=== PATIENT | female | born 1960 | race Native Hawaiian/Other Pacific Islander ===

== ENCOUNTER 2017-08-03 11:37 | Emergency (ER) | payer OTHER ==
[2017-08-03 11:37] VITALS: PULSE 71; BMI 18.6
[2017-08-03 11:40] VITALS: BP 155/86; PULSE 80; TEMP 98
[2017-08-03 11:42] VITALS: RESP 16; O2SAT 98
--- NOTE | 2017-08-03 12:12 | ED PDOC ---
HPI: General Adult Time Seen by Provider: 08/03/17 11:43 Chief Complaint (Nursing): Lower Extremity Problem/Injury History Per: Patient Additional Complaint(s): Pt. states earlier today at work she slipped and fell twisting her R foot and ankle on a "slippery floor." Reports pain is localized to the bottom of the R foot but she does notice some swelling to the R ankle. Denies previous injury to foot/ankle, numbness, tingling, head injury, other injury. Past Medical History Reviewed: Historical Data, Nursing Documentation, Vital Signs Vital Signs: Last Vital Signs Temp 98 F 08/03/17 11:39 Pulse 80 08/03/17 11:39 Resp 16 08/03/17 11:39 BP 155/86 H 08/03/17 11:39 Pulse Ox 98 08/03/17 12:14 - Medical History PMH: Atrial Fibrillation (6 yrs ago), Diverticulitis, Gastritis, Migraine Denies: HIV, Chronic Kidney Disease - Surgical History Surgical History: Appendectomy - Family History Family History: States: No Known Family Hx - Home Medications Home Medications: Ambulatory Orders Medication Instructions Recorded Aspirin/Butalbital/Caffeine 1 tab PO PRN PRN 11/11/16 [Fiorinal] Dexlansoprazole [Dexilant] 60 mg PO DAILY 12/10/16 - Allergies Allergies/Adverse Reactions: Allergies Allergy/AdvReac Type Severity Reaction Status Date / Time fluticasone [From Flonase] AdvReac ANAPHYLAXIS Verified 08/03/17 11:45 acta tabs AdvReac ANAPHYLAXIS Uncoded 08/03/17 11:46 Review of Systems ROS Statement: Except As Marked, All Systems Reviewed And Found Negative Musculoskeletal: Positive for: Foot Pain Physical Exam - Physical Exam Appears: Positive for: Well, Non-toxic, No Acute Distress Skin: Positive for: Normal Color, Warm. Negative for: Rash Eye Exam: Positive for: Normal appearance Pulses-Dorsalis Pedis (L): 2+ Pulses-Dorsalis Pedis (R): 2+ Extremity: Positive for: Other (RIGHT LOWER EXTREMITY: minimal tenderness on lateral plantar surface of foot; minimal lateral malleolus swelling without tenderness; no tenderness to ankle). Negative for: Calf Tenderness (b/l) - ECG O2 Sat by Pulse Oximetry: 98 - Radiology X-Ray: Interpreted by Me (R foot/ankle x-ray) X-Ray Interpretation: No Acute Disease - Progress ED Course And Treament: Tylenol 650mg PO, foot/ankle x-ray ordered. Foot/ankle opal wrapped and post-op shoe provided. Crutches and crutch walking instructions provided. Disposition - Clinical Impression Clinical Impression: Foot sprain - Patient ED Disposition Is Patient to be Admitted: No - Disposition Disposition: Routine/Home Disposition Time: 12:19 Condition: STABLE Additional Instructions: Take Tylenol or Motrin at home for pain. Follow up with [facility] on Monday WITHOUT FAIL. Instructions: Foot Sprain (ED), Crutch Instructions (ED), RICE Therapy (ED) Forms: [employer] (Guyanese), [facility] ED School/Work Excuse Print Language: [place] ISLANDER
--- NOTE | 2017-08-03 13:57 | RAD ---
PROCEDURE: Right Ankle Radiographs. HISTORY: trauma COMPARISON: None FINDINGS: BONES: Normal. No fracture. JOINTS: Normal. No osteoarthritis. Ankle mortise maintained. Talar dome intact SOFT TISSUES: A moderate plantar calcaneal spurs identified and there is mild ossification insertion of Achilles tendon on the posterior calcaneus. OTHER FINDINGS: None. IMPRESSION: No acute fracture or dislocation right ankle.
--- NOTE | 2017-08-03 13:59 | RAD ---
PROCEDURE: Right Foot Radiographs. HISTORY: trauma COMPARISON: None. FINDINGS: BONES: No acute fracture dislocation is appreciated. No suspicious lytic or blastic change. JOINTS: Moderate hallux valgus deformity is appreciated and degenerative interphalangeus joint changes seen throughout the digits comprise of joint space narrowing and articular cortical sclerosis. Lesser similar degenerate changes seen at the tarsometatarsal articulations as well. Moderate plantar calcaneal spur is incidentally noted. Local soft tissues are otherwise unremarkable. SOFT TISSUES: See above OTHER FINDINGS: None. IMPRESSION: No acute fracture or dislocation appreciated. Moderate hallux valgus deformity and degenerative changes seen throughout the digits as per above.
== END 2017-08-03 13:01 | disposition home or self-care (01) ==
LOC: H.ER 11:37
DX: S93.601A Unspecified sprain of right foot, initial encounter (principal); W19.XXXA Unspecified fall, initial encounter; Y99.0 Civilian activity done for income or pay

== ENCOUNTER 2018-10-17 10:45 | Inpatient (IN) | payer OTHER ==
[2018-10-17 10:57] VITALS: BMI 20.6
[2018-10-17] MEDS ORDERED: Sodium Chloride 0.9% 1,000 ML IV STA (11:17)
--- NOTE | 2018-10-17 11:19 | ED PDOC ---
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 Patient states that she has had similar symptoms 3 times in the past secondary to allergy medications. She reports that she takes daily Zyrtec and has a glass of wine last night when the palpitations started. Patient states that she took 125 micrograms of Digoxin last night and another dose this morning. She denies any chest pain, dizziness, and shortness of breath. PMD: Dar Vergara Aix Architect: Dr. Rivera Past Medical History Vital Signs: Last Vital Signs Temp 97.6 F 10/17/18 10:45 Pulse 130 H 10/17/18 10:45 Resp 18 10/17/18 10:45 BP 148/78 10/17/18 10:45 Pulse Ox 100 10/17/18 10:45 - Medical History PMH: Atrial Fibrillation (6 yrs ago), Diverticulitis, Gastritis, Migraine Denies: HIV, Chronic Kidney Disease - Surgical History Surgical History: Appendectomy - Family History Family History: States: Unknown Family Hx - Social History Current smoker - smoking cessation education provided: No Alcohol: None Drugs: Denies - Home Medications Home Medications: Ambulatory Orders Medication Instructions Recorded Acetaminophen/Butalbital/Caf 1 tab PO Q8 PRN 10/17/18 [Fioricet] Calcium Carbonate/Vitamin D3 1 tab PO DAILY 10/17/18 [Caltrate 600 Plus D3 Tablet] Cetirizine HCl [Allergy Relief] 10 mg PO HS 10/17/18 Magnesium Oxide [Magox 400] 1 tab PO DAILY 10/17/18 Vitamin B Complex [Super B-50 1 cap PO DAILY 10/17/18 Complex] Metoprolol Tartrate [Lopressor] 50 mg PO Q12 #60 tab 10/19/18 - Allergies Allergies/Adverse Reactions: Allergies Allergy/AdvReac Type Severity Reaction Status Date / Time cetirizine [From Zyrtec] AdvReac DIZZINESS Verified 11/21/18 11:29 fluticasone [From Flonase] AdvReac ANAPHYLAXIS Verified 10/17/18 11:29 acta tabs AdvReac ANAPHYLAXIS Uncoded 10/17/18 11:29 BARBER Risk Score for UA/NSTEMI - BARBER Risk Score Age > 64: NO 3 or more CAD Risk Factors: NO Known CAD (Stenosis greater than 50%): NO Aspirin use in past 7 days: NO Severe Angina: NO EKG ST changes greater than 0.5mm: NO Positive Cardiac Marker: NO BARBER Score: 0 Risk %: 5% Wells Criteria for PE - Wells Criteria for Pulmonary Embolism P.E is #1 Diagnosis, or Equally Likely: No Heart Rate >100: Yes Immobilization at least 3 days;Surgery previous 4 weeks: No Previous, objectively diagnosed PE or DVT: No Hemoptysis: No Malignancy w/treatment within 6 months, or palliative: No Total Score: 1.5 Review of Systems ROS Statement: Except As Marked, All Systems Reviewed And Found Negative Cardiovascular: Positive for: Palpitations. Negative for: Chest Pain Respiratory: Negative for: Shortness of Breath Neurological: Negative for: Dizziness Physical Exam - Reviewed Nursing Documentation Reviewed: Yes Vital Signs Reviewed: Yes - Physical Exam Appears: Positive for: Non-toxic, No Acute Distress Head Exam: Positive for: ATRAUMATIC, NORMAL INSPECTION, NORMOCEPHALIC Skin: Positive for: Normal Color, Warm, DRY Eye Exam: Positive for: Normal appearance, EOMI, PERRL ENT: Positive for: Normal ENT Inspection Neck: Positive for: Normal, Painless ROM Cardiovascular/Chest: Positive for: Tachycardia, Irregularly Irregular Respiratory: Positive for: Normal Breath Sounds. Negative for: Respiratory Distress Gastrointestinal/Abdominal: Positive for: Normal Exam, Soft. Negative for: Tenderness Back: Positive for: Normal Inspection. Negative for: L CVA Tenderness, R CVA Tenderness, Vertebral Tenderness Extremity: Positive for: Normal ROM. 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 Negative for: Motor/Sensory Deficits - Laboratory Results Result Diagrams: 10/17/18 11:27 10/17/18 11:27 - ECG O2 Sat by Pulse Oximetry: 100 (RA) Pulse Ox Interpretation: Normal - Physician Consult Information Time Consulting Physican Contacted: 11:45 Physician Contacted: Chay Rivera Outcome Of Conversation: Recommends Dig 0.25 mcg PO, Lovenox and echo, will relay consult to Dr. Vieira. Medical Decision Making Medical Decision Making: Time: 11:03 Plan: --EKG --CMP --TSH --Troponin --ED Urine Dipstick --CBC --Coags --Chest X-Ray --Cardizem 20 mg IVP --Urinalysis Accession No. : [id number] Patient Name / ID : NIESHA Lee / [id number] Exam Date : 10/17/2018 10:52:52 ( Approved ) Study Comment : Sex / Age : F / 58Y Creator : Tita Garcia V. Dictator : Tita Garcia V. Resource Paraprofessional : Tenter Frame Back Tender : Tita Garcia V. Approver2 : Report Date : 10/17/2018 11:16:21 My Comment : Date of service: 10/17/2018 HISTORY: Palpitations COMPARISON: 02/21/2018 FINDINGS: LUNGS: No active pulmonary disease. PLEURA: No significant pleural effusion identified, no pneumothorax apparent. CARDIOVASCULAR: There is presence of aortic atherosclerotic calcification on x-ray. Normal cardiac size. No pulmonary vascular congestion. OSSEOUS STRUCTURES: Dextroscoliosis-similar VISUALIZED UPPER ABDOMEN: Normal. OTHER FINDINGS: Tubular opacities project over the right cardio phrenic area and right upper quadrant-may be extrinsic to the patient. Correlate clinically IMPRESSION: No acute cardiopulmonary pathology noted Other findings as above. Accession No. : [id number] Patient Name / ID : NIESHA Lee / [id number] Exam Date : 10/17/2018 13:24:32 ( Approved ) Study Comment : Sex / Age : F / 58Y Creator : Indy Uribe MD Dictator : Indy Uribe MD Resource Paraprofessional : Tenter Frame Back Tender : Indy Uribe MD Approver2 : Report Date : 10/17/2018 14:56:56 My Comment : This report is currently processing and HAS NOT BEEN OFFICIALLY SIGNED BY THE PHYSICIAN - ESTIMATED TIME OF APPROVAL IS 10/17/2018 15:02. Date of service: 10/17/2018 PROCEDURE: CT Chest with contrast (Pulmonary Angiogram) HISTORY: A fib COMPARISON: None available. TECHNIQUE: Axial computed tomography images were obtained of the chest in the pulmonary arterial phase of enhancement. Coronal and sagittal reformatted images were created and reviewed. Intravenous contrast dose: 90 cc Visipaque 320 Radiation dose: Total exam DLP = 235.69 mGy-cm. This CT exam was performed using one or more of the following dose reduction techniques: Automated exposure control, adjustment of the mA and/or kV according to patient size, and/or use of iterative reconstruction technique. FINDINGS: PULMONARY ARTERIES: There are no filling defects in the pulmonary arteries to suggest acute pulmonary embolism. AORTA: No acute findings. No thoracic aortic aneurysm. No aortic atherosclerotic calcification or mural plaque present. LUNGS: The lungs are well inflated and clear. There is dependent atelectasis in the posterior lower lobes with no nodule, mass or pulmonary consolidation. PLEURAL SPACES: No effusion or pneumothorax. HEART: Mild cardiomegaly. No significant pericardial effusion. LYMPH NODES: No pathologic mediastinal or hilar lymphadenopathy. BONES, CHEST WALL: Within normal limits for the patient's age. No fracture or destructive lesion OTHER FINDINGS: None. IMPRESSION: No CTA evidence for acute pulmonary embolism. Clear lungs. Scribe Attestation: Documented by, Lupe Hernández acting as a scribe for Adela Bhatt MD. Provider Scribe Attestation: All medical record entries made by the Scribe were at my direction and personally dictated by me. I have reviewed the chart and agree that the record accurately reflects my personal performance of the history, physical exam, medical decision making, and the department course for this patient. I have also personally directed, reviewed, and agree with the discharge instructions and disposition. Disposition - Clinical Impression Clinical Impression: Atrial fibrillation with rapid ventricular response - Patient ED Disposition Is Patient to be Admitted: Yes - Disposition Disposition Time: 13:50 Condition: IMPROVED - Pt Status Changed To: Hospital Disposition Of: Inpatient - Admit Certification Admit to Inpatient:: After my assessment, the patient will require h ospitalization for at least two midnights. This is because of the severity of symptoms shown, intensity of services needed, and/or the medical risk in this patient being treated as an outpatient. - POA Present On Arrival: None
[2018-10-17] MEDS ORDERED: Digoxin 250 mcg (0.25 mg) Tab PO STA (11:40)
[2018-10-17] MEDS ORDERED: Enoxaparin 60 mg Syringe SC STA (11:41)
[2018-10-17 11:49] LABS: HEMOGLOBIN 11.7 g/dL (12.0-16.0); INR 0.9; LYMPH % 30.7 % (20.0-40.0); MEAN CELL VOLUME 72.3 fl (81.0-99.0); MEAN CORPUSCULAR HGB CONC 30.5 g/dL (33.0-37.0); MEAN PLATELET VOLUME 8.6 fl (7.2-11.7); MONO % 7.2 % (0.0-10.0); NEUT % 59.5 % (50.0-75.0); PROTHROMBIN TIME 10.7 Seconds (9.8-13.1); RBC 5.33 Mil/uL (3.80-5.20); RED CELL DISTRIBUTION WIDTH 15.6 % (11.5-14.5); WHITE BLOOD COUNT 7.2 K/uL (4.8-10.8)
[2018-10-17 11:50] LABS: BASO # 0.1 K/uL (0.0-0.2); EOS # 0.1 K/uL (0.0-0.7); EOS % 1.6 % (0.0-4.0); LYMPH # 2.2 K/uL (1.0-4.3); MONO # 0.5 K/uL (0.0-0.8); NEUT # 4.3 K/uL (1.8-7.0); NRBC % 0.1 % (0.0-0.0)
[2018-10-17 11:51] LABS: PARTIAL THROMBOPLASTIN TIME 38.5 Seconds (25.6-37.1)
[2018-10-17] MEDS ORDERED: Digoxin 250 mcg (0.25 mg) Tab ONE (11:52)
[2018-10-17 11:59] LABS: ALB/GLOB RATIO 1.2 (1.0-2.1); ALBUMIN 4.6 g/dL (3.5-5.0); BLOOD UREA NITROGEN 18 mg/dl (7-17); CALCIUM 9.1 mg/dL (8.4-10.2); GFR NON-AFRICAN AMERICAN > 60
[2018-10-17 12:14] LABS: ALT/SGPT 43 U/L (9-52); AST/SGOT 65 U/L (14-36)
[2018-10-17 12:58] LABS: URINE BILIRUBIN NEGATIVE (NEGATIVE); URINE BLOOD NEGATIVE (NEGATIVE); URINE CLARITY SLIGHTY-CLOUDY (Clear); URINE COLOR YELLOW (YELLOW); URINE GLUCOSE (UA) NEG (Normal); URINE LEUKOCYTE ESTERASE NEG Leu/uL (Negative); URINE PROTEIN NEGATIVE (NEGATIVE); URINE UROBILINOGEN 0.2-1.0 mg/dL (0.2-1.0)
[2018-10-17] MEDS ORDERED: Iodixanol 320 MG/ML 100 ML BOTTLE IV ONE (13:15)
[2018-10-17] MEDS ORDERED: Sodium Chloride 0.9% 50 ML IV ONE (13:16)
--- NOTE | 2018-10-17 15:01 | CT ---
Date of service: 10/17/2018 PROCEDURE: CT Chest with contrast (Pulmonary Angiogram) HISTORY: A fib COMPARISON: None available. TECHNIQUE: Axial computed tomography images were obtained of the chest in the pulmonary arterial phase of enhancement. Coronal and sagittal reformatted images were created and reviewed. Intravenous contrast dose: 90 cc Visipaque 320 Radiation dose: Total exam DLP = 235.69 mGy-cm. This CT exam was performed using one or more of the following dose reduction techniques: Automated exposure control, adjustment of the mA and/or kV according to patient size, and/or use of iterative reconstruction technique. FINDINGS: PULMONARY ARTERIES: There are no filling defects in the pulmonary arteries to suggest acute pulmonary embolism. AORTA: No acute findings. No thoracic aortic aneurysm. No aortic atherosclerotic calcification or mural plaque present. LUNGS: The lungs are well inflated and clear. There is dependent atelectasis in the posterior lower lobes with no nodule, mass or pulmonary consolidation. PLEURAL SPACES: No effusion or pneumothorax. HEART: Mild cardiomegaly. No significant pericardial effusion. LYMPH NODES: No pathologic mediastinal or hilar lymphadenopathy. BONES, CHEST WALL: Within normal limits for the patient's age. No fracture or destructive lesion OTHER FINDINGS: None. IMPRESSION: No CTA evidence for acute pulmonary embolism. Clear lungs.
--- NOTE | 2018-10-17 15:20 | CP.PCM.HP ---
<Braxton Gomez - Last Filed: 10/17/18 16:45> History of Present Illness - History of Present Illness History of Present Illness: HPI Pt is 58 y/o female with paroxysomal Atrial Fibrillation presents to ED with complaints of palpitations and generalized malaise. Reports that last night, she had a few glasses of wine (more than her usual dose) and shortly after she "di dnt feel well." When she measured her HR, she noticed it was 160. She states that she took 0.25mg of Digoxin. This morning she went to work and the palpitations persisited which was what prompted her to come to the ED for further evaluation. She recalls taking Citrizine last night for her allergies/ congestion. She also states that she feels like she may have had a virus as she felt nauseous. She denies chest pain, sob, syncopy, LE edema, prolonged immobility, cough, vomiting, diarrhea, dysuria, fever/chills. ROS 10 point negative PMD: Dr. Vergara Neurological Surgeon: Dr. Rivera PMHX: Paroxysomal Afibb (Diagnosed 2017, not on any anticoagulation or rate control, seen by Dr. 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 Rivera (Dr. Vieira covering) Present on Admission - Present on Admission Any Indicators Present on Admission: No Past Patient History - Past Medical History & Family History Past Medical History?: Yes - Past Social History Alcohol: None Drugs: Denies - CARDIAC Hx Atrial Fibrillation: Yes (6 yrs ago) - PULMONARY Hx Respiratory Disorders: No - NEUROLOGICAL Hx Migraine: Yes - HEENT Hx HEENT Problems: No - RENAL Hx Chronic Kidney Disease: No - ENDOCRINE/METABOLIC Hx Endocrine Disorders: No - HEMATOLOGICAL/ONCOLOGICAL Hx Human Immunodeficiency Virus (HIV): No - INTEGUMENTARY Hx Dermatological Problems: No - MUSCULOSKELETAL/RHEUMATOLOGICAL Hx Falls: No Hx Herniated Disk: Yes Other/Comment: cervical/lumbar radic/disc bulge - GASTROINTESTINAL Hx Diverticulitis: Yes Hx Gastritis: Yes - GENITOURINARY/GYNECOLOGICAL Hx Genitourinary Disorders: No Other/Comment: Positive for HPV - PSYCHIATRIC Hx Psychophysiologic Disorder: No Hx Substance Use: No - SURGICAL HISTORY Hx Appendectomy: Yes - ANESTHESIA Hx Anesthesia: Yes Hx Anesthesia Reactions: No Hx Malignant Hyperthermia: No Meds Allergies/Adverse Reactions: Allergies Allergy/AdvReac Type Severity Reaction Status Date / Time cetirizine [From Zyrtec] AdvReac DIZZINESS Verified 10/17/18 11:29 fluticasone [From Flonase] AdvReac ANAPHYLAXIS Verified 10/17/18 11:29 acta tabs AdvReac ANAPHYLAXIS Uncoded 10/17/18 11:29 Physical Exam - Constitutional Appears: Non-toxic, No Acute Distress - Head Exam Head Exam: NORMAL INSPECTION - Eye Exam Eye Exam: Normal appearance - ENT Exam ENT Exam: Mucous Membranes Moist - Neck Exam Neck exam: Negative for: Thyromegaly Additional comments: NO JVD - Respiratory Exam Respiratory Exam: Clear to Auscultation Bilateral. absent: Accessory Muscle Use, Rales, Wheezes - Cardiovascular Exam Cardiovascular Exam: Tachycardia, Irregular Rhythm, +S1, +S2. absent: Systolic Murmur - GI/Abdominal Exam GI & Abdominal Exam: Normal Bowel Sounds, Soft. absent: Distended, Tenderness - Extremities Exam Extremities exam: Positive for: normal capillary refill, normal inspection, pedal pulses present. Negative for: calf tenderness, pedal edema - Neurological Exam Neurological exam: Alert, Oriented x3 - Psychiatric Exam Psychiatric exam: Normal Affect - Skin Skin Exam: Normal Color Results - Vital Signs Recent Vital Signs: Last Vital Signs Temp 97.6 F 10/17/18 10:45 Pulse 107 H 10/17/18 12:58 Resp 104 H 10/17/18 14:53 BP 129/84 10/17/18 14:53 Pulse Ox 100 10/17/18 15:16 - Labs Result Diagrams: 10/17/18 11:27 10/17/18 11:27 Labs: Laboratory Results - last 24 hr 10/17/18 10/17/18 10/17/18 11:27 11:27 11:27 WBC 7.2 RBC 5.33 H Hgb 11.7 L Hct 38.5 MCV 72.3 L D MCH 22.0 L MCHC 30.5 L RDW 15.6 H Plt Count 277 MPV 8.6 Neut % (Auto) 59.5 Lymph % (Auto) 30.7 Barton % (Auto) 7.2 Eos % (Auto) 1.6 Baso % (Auto) 1.0 Neut # (Auto) 4.3 Lymph # (Auto) 2.2 Barton # (Auto) 0.5 Eos # (Auto) 0.1 Baso # (Auto) 0.1 PT 10.7 INR 0.9 APTT 38.5 H Sodium 136 Potassium 4.4 Chloride 98 Carbon Dioxide 26 Anion Gap 16 BUN 18 H Creatinine 0.6 L Est GFR ( Amer) > 60 Est GFR (Non-Af Amer) > 60 Random Glucose 129 H Calcium 9.1 Total Bilirubin 0.7 AST 65 H ALT 43 Alkaline Phosphatase 80 Troponin I < 0.0120 Total Protein 8.2 Albumin 4.6 Globulin 3.7 Albumin/Globulin Ratio 1.2 TSH 3rd Generation 0.96 Urine Color Urine Clarity Urine pH Ur Specific [place] Urine Protein Urine Glucose (UA) Urine Ketones Urine Blood Urine Nitrate Urine Bilirubin Urine Urobilinogen Ur Leukocyte Esterase Urine RBC (Auto) 10/17/18 12:45 WBC RBC Hgb Hct MCV MCH MCHC RDW Plt Count MPV Neut % (Auto) Lymph % (Auto) Barton % (Auto) Eos % (Auto) Baso % (Auto) Neut # (Auto) Lymph # (Auto) Barton # (Auto) Eos # (Auto) Baso # (Auto) PT INR APTT Sodium Potassium Chloride Carbon Dioxide Anion Gap BUN Creatinine Est GFR ( Amer) Est GFR (Non-Af Amer) Random Glucose Calcium Total Bilirubin AST ALT Alkaline Phosphatase Troponin I Total Protein Albumin Globulin Albumin/Globulin Ratio TSH 3rd Generation Urine Color Yellow Urine Clarity Slighty-cloudy Urine pH 6.0 Ur Specific [place] 1.011 Urine Protein Negative Urine Glucose (UA) Neg Urine Ketones Negative Urine Blood Negative Urine Nitrate Negative Urine Bilirubin Negative Urine Urobilinogen 0.2-1.0 Ur Leukocyte Esterase Neg Urine RBC (Auto) < 1 Assessment & Plan - Assessment and Plan (Free Text) Assessment: Pt is 58 y/o female with Paroxysomal Atrial Fibrillation presents to ED with complaints of palpitations and generalized malaise and found to be in Atrial Fibrillation w/ RVR. #Atrial Fibrillation -Pt has hx of paroxysomal Afibb. Likely triggered by antihistamine (Zyrtec) -S/P Cardizem 10mg IV and Digoxin 0.25mg po -Discussed case w/ Dr. Rivera- will order 0.125mg of Digoxin. Will f/u Cardiac recommendations with regards to anticogulation -Tele Cardaic monitoring -Chest CT Angio negative for PE -Troponin x1 negative; f/u Serial q8 -Echo completed- report pending DVT ppx -Received Therapeutic lovenox dose x1 -Tomorrow will continue with ppx lovenox dose -Ambulation encouraged Diet -Heart Healthy Stable Full Code <Candace Brock - Last Filed: 10/17/18 18:39> Results - Vital Signs Recent Vital Signs: Last Vital Signs Temp 98.1 F 10/17/18 16:57 Pulse 80 10/17/18 16:57 Resp 20 10/17/18 16:57 BP 128/78 10/17/18 16:57 Pulse Ox 97 10/17/18 16:57 - Labs Result Diagrams: 10/17/18 11:27 10/17/18 11:27 Labs: Laboratory Results - last 24 hr 10/17/18 10/17/18 10/17/18 11:27 11:27 11:27 WBC 7.2 RBC 5.33 H Hgb 11.7 L Hct 38.5 MCV 72.3 L D MCH 22.0 L MCHC 30.5 L RDW 15.6 H Plt Count 277 MPV 8.6 Neut % (Auto) 59.5 Lymph % (Auto) 30.7 Barton % (Auto) 7.2 Eos % (Auto) 1.6 Baso % (Auto) 1.0 Neut # (Auto) 4.3 Lymph # (Auto) 2.2 Barton # (Auto) 0.5 Eos # (Auto) 0.1 Baso # (Auto) 0.1 PT 10.7 INR 0.9 APTT 38.5 H Sodium 136 Potassium 4.4 Chloride 98 Carbon Dioxide 26 Anion Gap 16 BUN 18 H Creatinine 0.6 L Est GFR ( Amer) > 60 Est GFR (Non-Af Amer) > 60 Random Glucose 129 H Calcium 9.1 Total Bilirubin 0.7 AST 65 H ALT 43 Alkaline Phosphatase 80 Troponin I < 0.0120 Total Protein 8.2 Albumin 4.6 Globulin 3.7 Albumin/Globulin Ratio 1.2 TSH 3rd Generation 0.96 Urine Color Urine Clarity Urine pH Ur Specific [place] Urine Protein Urine Glucose (UA) Urine Ketones Urine Blood Urine Nitrate Urine Bilirubin Urine Urobilinogen Ur Leukocyte Esterase Urine RBC (Auto) 10/17/18 12:45 WBC RBC Hgb Hct MCV MCH MCHC RDW Plt Count MPV Neut % (Auto) Lymph % (Auto) Barton % (Auto) Eos % (Auto) Baso % (Auto) Neut # (Auto) Lymph # (Auto) Barton # (Auto) Eos # (Auto) Baso # (Auto) PT INR APTT Sodium Potassium Chloride Carbon Dioxide Anion Gap BUN Creatinine Est GFR ( Amer) Est GFR (Non-Af Amer) Random Glucose Calcium Total Bilirubin AST ALT Alkaline Phosphatase Troponin I Total Protein Albumin Globulin Albumin/Globulin Ratio TSH 3rd Generation Urine Color Yellow Urine Clarity Slighty-cloudy Urine pH 6.0 Ur Specific [place] 1.011 Urine Protein Negative Urine Glucose (UA) Neg Urine Ketones Negative Urine Blood Negative Urine Nitrate Negative Urine Bilirubin Negative Urine Urobilinogen 0.2-1.0 Ur Leukocyte Esterase Neg Urine RBC (Auto) < 1 Attending/Attestation - Attestation I have personally seen and examined this patient.: Yes I have fully participated in the care of the patient.: Yes I have reviewed all pertinent clinical information: Yes Notes (Text): 10/17/18 18:38 Agree with findings and plan as above patient received total Dig 0.5 mg and continuing on with Dig 0.125 mg daily rate 80 now, afib monitor for conversion back to NSR as patient usually does patient aware her allergy medications, Zyrtec triggers these episodes, however continues to take them.
[2018-10-17] MEDS: Digoxin 125 mcg (0.125 mg) Tab PO SCH (16:54)
--- NOTE | 2018-10-17 16:54 | CARD ---
APPROVED REPORT Date of service: 10/17/2018 EKG Measurement Heart [id number] <Conclusion> Atrial fibrillation Abnormal ECG
--- NOTE | 2018-10-17 16:54 | CP.PCM.CON ---
History of Present Illness - History of Present Illness History of Present Illness: 58 y/o female with paroxysomal Atrial Fibrillation presents to ED with complaints of palpitations and generalized malaise. She denies chest pain, sob, syncopy, LE edema, prolonged immobility, cough, vomiting, diarrhea, dysuria, fever/chills. Pt has PMH of intermittent Atrial Fibrillation EKG: Atrial Fibrillation Troponin: neg Pt still in Atrial fib @ RVR will increase digoxin and metoprolol \ Past Patient History - Past Medical History & Family History Past Medical History?: Yes - Past Social History Alcohol: None Drugs: Denies - CARDIAC Hx Atrial Fibrillation: Yes (6 yrs ago) - PULMONARY Hx Respiratory Disorders: No - NEUROLOGICAL Hx Migraine: Yes - HEENT Hx HEENT Problems: No - RENAL Hx Chronic Kidney Disease: No - ENDOCRINE/METABOLIC Hx Endocrine Disorders: No - HEMATOLOGICAL/ONCOLOGICAL Hx Human Immunodeficiency Virus (HIV): No - INTEGUMENTARY Hx Dermatological Problems: No - MUSCULOSKELETAL/RHEUMATOLOGICAL Hx Falls: No Hx Herniated Disk: Yes Other/Comment: cervical/lumbar radic/disc bulge - GASTROINTESTINAL Hx Diverticulitis: Yes Hx Gastritis: Yes - GENITOURINARY/GYNECOLOGICAL Hx Genitourinary Disorders: No Other/Comment: Positive for HPV - PSYCHIATRIC Hx Psychophysiologic Disorder: No Hx Substance Use: No - SURGICAL HISTORY Hx Appendectomy: Yes - ANESTHESIA Hx Anesthesia: Yes Hx Anesthesia Reactions: No Hx Malignant Hyperthermia: No Meds Allergies/Adverse Reactions: Allergies Allergy/AdvReac Type Severity Reaction Status Date / Time cetirizine [From Zyrtec] AdvReac DIZZINESS Verified 10/17/18 11:29 fluticasone [From Flonase] AdvReac ANAPHYLAXIS Verified 10/17/18 11:29 acta tabs AdvReac ANAPHYLAXIS Uncoded 10/17/18 11:29 - Medications Medications: Current Medications Acetaminophen (Tylenol 325mg Tab) 650 mg PO Q6 PRN PRN Reason: Pain, Mild (1-3) Digoxin (Digoxin) 0.125 mg PO DAILY [facility] Ondansetron HCl (Zofran Inj) 4 mg IVP Q6 PRN PRN Reason: Nausea/Vomiting Results - Vital Signs Recent Vital Signs: Last Vital Signs Temp 97.6 F 10/17/18 10:45 Pulse 107 H 10/17/18 12:58 Resp 104 H 11/21/18 14:53 BP 129/84 10/17/18 14:53 Pulse Ox 100 10/17/18 15:52 - Labs Result Diagrams: 10/17/18 11:27 10/18/18 04:25 Labs: Laboratory Results - last 24 hr 10/17/18 10/17/18 10/17/18 11:27 11:27 11:27 WBC 7.2 RBC 5.33 H Hgb 11.7 L Hct 38.5 MCV 72.3 L D MCH 22.0 L MCHC 30.5 L RDW 15.6 H Plt Count 277 MPV 8.6 Neut % (Auto) 59.5 Lymph % (Auto) 30.7 [place] % (Auto) 7.2 Eos % (Auto) 1.6 Baso % (Auto) 1.0 Neut # (Auto) 4.3 Lymph # (Auto) 2.2 [place] # (Auto) 0.5 Eos # (Auto) 0.1 Baso # (Auto) 0.1 PT 10.7 INR 0.9 APTT 38.5 H Sodium 136 Potassium 4.4 Chloride 98 Carbon Dioxide 26 Anion Gap 16 BUN 18 H Creatinine 0.6 L Est GFR ( Amer) > 60 Est GFR (Non-Af Amer) > 60 Random Glucose 129 H Calcium 9.1 Total Bilirubin 0.7 AST 65 H ALT 43 Alkaline Phosphatase 80 Troponin I < 0.0120 Total Protein 8.2 Albumin 4.6 Globulin 3.7 Albumin/Globulin Ratio 1.2 TSH 3rd Generation 0.96 Urine Color Urine Clarity Urine pH Ur Specific [place] Urine Protein Urine Glucose (UA) Urine Ketones Urine Blood Urine Nitrate Urine Bilirubin Urine Urobilinogen Ur Leukocyte Esterase Urine RBC (Auto) 10/17/18 12:45 WBC RBC Hgb Hct MCV MCH MCHC RDW Plt Count MPV Neut % (Auto) Lymph % (Auto) [place] % (Auto) Eos % (Auto) Baso % (Auto) Neut # (Auto) Lymph # (Auto) [place] # (Auto) Eos # (Auto) Baso # (Auto) PT INR APTT Sodium Potassium Chloride Carbon Dioxide Anion Gap BUN Creatinine Est GFR ( Amer) Est GFR (Non-Af Amer) Random Glucose Calcium Total Bilirubin AST ALT Alkaline Phosphatase Troponin I Total Protein Albumin Globulin Albumin/Globulin Ratio TSH 3rd Generation Urine Color Yellow Urine Clarity Slighty-cloudy Urine pH 6.0 Ur Specific [place] 1.011 Urine Protein Negative Urine Glucose (UA) Neg Urine Ketones Negative Urine Blood Negative Urine Nitrate Negative Urine Bilirubin Negative Urine Urobilinogen 0.2-1.0 Ur Leukocyte Esterase Neg Urine RBC (Auto) < 1 Assessment & Plan (1) Atrial fibrillation with rapid ventricular response Status: Acute
--- NOTE | 2018-10-17 16:55 | CARD ---
APPROVED REPORT Date of service: 10/17/2018 EKG Measurement Heart [id number] <Conclusion> Atrial fibrillation with rapid ventricular response Possible inferior infarct, age undetermined Abnormal ECG
[2018-10-18] MEDS: Digoxin 125 mcg (0.125 mg) Tab PO SCH (08:05)
--- NOTE | 2018-10-18 09:20 | CARD ---
APPROVED REPORT Date of service: 10/18/2018 EKG Measurement Heart [id number] <Conclusion> Atrial fibrillation with rapid ventricular response Inferior infarct, age undetermined Abnormal ECG
[2018-10-18] MEDS ORDERED: Digoxin 125 mcg (0.125 mg) Tab PO ONE (09:42)
--- NOTE | 2018-10-18 13:23 | CP.PCM.PN ---
Subjective - Date & Time of Evaluation Date of Evaluation: 10/18/18 Time of Evaluation: 09:00 - Subjective Subjective: Overnight, pt noted to be tachycardic in 160's in Afibb, was given po Metropolol 25mg and HR improved to 120's but still in Afibb. This morning pt was seen and examined. Denies any CP, SOB, lightheadedness. Discussed plan for continued rate/rhythm control. Objective - Vital Signs/Intake and Output Vital Signs (last 24 hours): Temp Pulse Resp BP Pulse Ox 97.9 F 92 H 18 97/65 L 99 10/18/18 12:00 10/18/18 12:00 10/18/18 12:00 10/18/18 12:00 10/18/18 12:00 - Medications Medications: Current Medications Acetaminophen (Tylenol 325mg Tab) 650 mg PO Q6 PRN PRN Reason: Pain, Mild (1-3) Digoxin (Digoxin) 0.125 mg PO DAILY [facility] Last Admin: 10/18/18 08:05 Dose: 0.125 mg Enoxaparin Sodium (Lovenox) 40 mg SC DAILY [facility]; Protocol Metoprolol Tartrate (Lopressor) 50 mg PO Q12 [facility] Ondansetron HCl (Zofran Inj) 4 mg IVP Q6 PRN PRN Reason: Nausea/Vomiting - Labs Labs: 10/17/18 11:27 10/18/18 04:25 PT 10.7 Seconds (9.8-13.1) 10/17/18 11:27 INR 0.9 10/17/18 11:27 APTT 38.5 Seconds (25.6-37.1) H 10/17/18 11:27 - Constitutional Appears: Well, Non-toxic, No Acute Distress - Head Exam Head Exam: NORMAL INSPECTION - Eye Exam Eye Exam: Normal appearance - ENT Exam ENT Exam: Mucous Membranes Moist - Neck Exam Neck Exam: Full ROM - Respiratory Exam Respiratory Exam: Clear to Ausculation Bilateral. absent: Rales, Wheezes - Cardiovascular Exam Cardiovascular Exam: Tachycardia, Irregular Rhythm, +S1, +S2. absent: JVD, Murmur - GI/Abdominal Exam GI & Abdominal Exam: Soft, Normal Bowel Sounds. absent: Distended, Tenderness - Extremities Exam Extremities Exam: Normal Capillary Refill. absent: Calf Tenderness, Pedal Edema - Neurological Exam Neurological Exam: Alert, Awake, Oriented x3 - Psychiatric Exam Psychiatric exam: Normal Affect. absent: Anxious - Skin Skin Exam: Normal Color Assessment and Plan - Assessment and Plan (Free Text) Assessment: Pt is 58 y/o female with Paroxysomal Atrial Fibrillation presents to ED with complaints of palpitations and generalized malaise and found to be in Atrial Fibrillation w/ RVR. #Atrial Fibrillation -Pt has hx of paroxysomal Afibb. Likely triggered by antihistamine (Zyrtec) -S/P Cardizem 10mg IV and Digoxin 0.25mg po in ED -Cardiology Consulted- Dr. Mann, Digoxin and Metoprolol increased for further rate/rhythm control -C/W Digoxin 0.125mg Daily and Metoprolol 50mg po q12 -ASA 81 started today -Tele Cardaic monitoring -Chest CT Angio negative for PE -Troponin x2 negative -Echo completed- report pending DVT ppx -Received Therapeutic lovenox dose x1 -Tomorrow will continue with ppx lovenox dose -Ambulation encouraged Diet -Heart Healthy Stable Full Code
[2018-10-18] MEDS: Enoxaparin 40 mg Syringe SC SCH (17:00)
[2018-10-19 00:17] VITALS: RESP 18
[2018-10-19] MEDS: Digoxin 125 mcg (0.125 mg) Tab PO SCH (08:31)
[2018-10-19 08:32] VITALS: PULSE 110
[2018-10-19] MEDS: Enoxaparin 40 mg Syringe SC SCH (08:32)
--- NOTE | 2018-10-19 10:22 | CARD ---
APPROVED REPORT Date of service: 10/17/2018 EXAM: Two-dimensional and M-mode echocardiogram with Doppler and color Doppler. Other Information Quality : GoodRhythm : Atrial Fibrillation INDICATION Atrial Fibrillation 2D DIMENSIONS IVSd0.97 (0.7-1.1cm)LVDd4.18 (3.9-5.9cm) LVOT Diameter2.09 (1.8-2.4cm)PWd1.11 (0.7-1.1cm) IVSs1.26 (0.8-1.2cm)LVDs2.98 (2.5-4.0cm) FS (%) 28.7 %PWs1.54 (0.8-1.2cm) M-Mode DIMENSIONS Left Atrium (MM)2.68 (2.5-4.0cm)IVSd0.95 (0.7-1.1cm) Aortic Root2.81 (2.2-3.7cm)LVDd3.63 (4.0-5.6cm) Aortic Cusp Exc.1.90 (1.5-2.0cm)PWd1.26 (0.7-1.1cm) IVSs1.29 cmFS (%) 30 % LVDs2.55 (2.0-3.8cm)PWs1.36 cm Aortic Valve AoV Peak Xbplyxpd472.3cm/sAoV VTI18.3cmAO Peak GR.6mmHg AO Mean GR.3mmHg Mitral Valve E/A ratio0.0 TDI E/Lateral E'0.0E/Medial E'0.0 Tricuspid Valve TR Peak [id number]/sRAP [id number] Peak Gr.24mmHg [id number] LEFT VENTRICLE The left ventricle is normal size. There is normal left ventricular wall thickness. The left ventricular function is normal. LVEF is 55-60%. There is normal LV segmental wall motion. Due to A Fib, LV diastolic function could not be assesed. RIGHT VENTRICLE The right ventricle is normal size. There is normal right ventricular wall thickness. The right ventricular systolic function is normal. ATRIA The left atrium size is normal. The right atrium size is normal. AORTIC VALVE The aortic valve is normal in structure. No aortic regurgitation is present. There is no aortic valvular stenosis. MITRAL VALVE The posterior mitral leaflet had mild systolic prolapse There is no mitral valve stenosis. Mitral regurgitation is mild to moderate. TRICUSPID VALVE The tricuspid valve is normal in structure. There is mild to moderate tricuspid regurgitation. Right ventricular systolic pressure is estimated at 34 mmHg. There is mild pulmonary hypertension. PULMONIC VALVE The pulmonary valve is normal in structure. There is no pulmonic valvular regurgitation. GREAT VESSELS The aortic root is normal in size. The IVC is dilated. The IVC collapses <50% with inspiration. PERICARDIAL EFFUSION The pericardium appears normal. <Conclusion> The left ventricle is normal size. There is normal left ventricular wall thickness. There is normal LV segmental wall motion. The left ventricular function is normal. LVEF is 55-60%. The posterior mitral leaflet had mild systolic prolapse Mitral regurgitation is mild to moderate. The IVC is dilated. The IVC collapses <50% with inspiration.
--- NOTE | 2018-10-19 11:51 | CP.PCM.DIS ---
Provider - Provider Date of Admission: 10/17/18 13:50 Attending physician: Candace Brock DO Time Spent in preparation of Discharge (in minutes): 35 Hospital Course - Lab Results Lab Results: Most Recent Lab Values WBC 7.2 K/uL (4.8-10.8) 10/17/18 11:27 RBC 5.33 Mil/uL (3.80-5.20) H 10/17/18 11:27 Hgb 11.7 g/dL (12.0-16.0) L 10/17/18 11:27 Hct 38.5 % (34.0-47.0) 10/17/18 11:27 MCV 72.3 fl (81.0-99.0) L D 10/17/18 11:27 MCH 22.0 pg (27.0-31.0) L 10/17/18 11:27 MCHC 30.5 g/dL (33.0-37.0) L 10/17/18 11:27 RDW 15.6 % (11.5-14.5) H 10/17/18 11:27 Plt Count 277 K/uL (130-400) 10/17/18 11:27 MPV 8.6 fl (7.2-11.7) 10/17/18 11:27 Neut % (Auto) 59.5 % (50.0-75.0) 10/17/18 11:27 Lymph % (Auto) 30.7 % (20.0-40.0) 10/17/18 11:27 [place] % (Auto) 7.2 % (0.0-10.0) 10/17/18 11:27 Eos % (Auto) 1.6 % (0.0-4.0) 10/17/18 11:27 Baso % (Auto) 1.0 % (0.0-2.0) 10/17/18 11:27 Neut # (Auto) 4.3 K/uL (1.8-7.0) 10/17/18 11:27 Lymph # (Auto) 2.2 K/uL (1.0-4.3) 10/17/18 11:27 [place] # (Auto) 0.5 K/uL (0.0-0.8) 10/17/18 11:27 Eos # (Auto) 0.1 K/uL (0.0-0.7) 10/17/18 11:27 Baso # (Auto) 0.1 K/uL (0.0-0.2) 10/17/18 11:27 PT 10.7 Seconds (9.8-13.1) 10/17/18 11:27 INR 0.9 10/17/18 11:27 APTT 38.5 Seconds (25.6-37.1) H 10/17/18 11:27 Sodium 136 mmol/l (132-148) 10/17/18 11:27 Potassium 4.4 MMOL/L (3.6-5.0) 10/17/18 11:27 Chloride 98 mmol/L (98-107) 10/17/18 11:27 Carbon Dioxide 26 mmol/L (22-30) 10/17/18 11:27 Anion Gap 16 (10-20) 10/17/18 11:27 BUN 18 mg/dl (7-17) H 10/17/18 11:27 Creatinine 0.6 mg/dl (0.7-1.2) L 10/17/18 11:27 Est GFR ( Amer) > 60 10/17/18 11:27 Est GFR (Non-Af Amer) > 60 10/17/18 11:27 Random Glucose 129 mg/dL (65-105) H 10/17/18 11:27 Calcium 9.1 mg/dL (8.4-10.2) 10/17/18 11:27 Phosphorus Cancelled 10/18/18 04:25 Magnesium Cancelled 10/18/18 04:25 Total Bilirubin 0.7 mg/dl (0.2-1.3) 10/17/18 11:27 AST 65 U/L (14-36) H 10/17/18 11:27 ALT 43 U/L (9-52) 10/17/18 11:27 Alkaline Phosphatase 80 U/L (38-126) 10/17/18 11:27 Troponin I < 0.0120 ng/mL (0.00-0.120) 10/17/18 20:30 Total Protein 8.2 G/DL (6.3-8.2) 10/17/18 11:27 Albumin 4.6 g/dL (3.5-5.0) 10/17/18 11:27 Globulin 3.7 gm/dL (2.2-3.9) 10/17/18 11: Albumin/Globulin Ratio 1.2 (1.0-2.1) 10/17/18 11: Free T4 1.39 ng/dL (0.78-2.19) 10/18/18 04:25 Free T3 pg/mL 3.64 pg/mL (2.77-5.27) 10/18/18 11:08 TSH 3rd Generation 0.96 mIU/ML (0.46-4.68) 10/17/18 11:27 Urine Color Yellow (YELLOW) 10/17/18 12:45 Urine Clarity Slighty-cloudy (Clear) 10/17/18 12:45 Urine pH 6.0 (5.0-8.0) 10/17/18 12:45 Ur Specific [place] 1.011 (1.003-1.030) 10/17/18 12:45 Urine Protein Negative mg/dL (NEGATIVE) 10/17/18 12:45 Urine Glucose (UA) Neg mg/dL (Normal) 10/17/18 12:45 Urine Ketones Negative mg/dL (NEGATIVE) 10/17/18 12:45 Urine Blood Negative (NEGATIVE) 10/17/18 12:45 Urine Nitrate Negative (NEGATIVE) 10/17/18 12:45 Urine Bilirubin Negative (NEGATIVE) 10/17/18 12:45 Urine Urobilinogen 0.2-1.0 mg/dL (0.2-1.0) 10/17/18 12:45 Ur Leukocyte Esterase Neg [place]/uL (Negative) 10/17/18 12:45 Urine RBC (Auto) < 1 /hpf (0-3) 10/17/18 12:45 Digoxin 0.9 ng/mL (0.8-2.0) 10/19/18 04:20 - Hospital Course Hospital Course: Pt is a 58 y/o female with hx of Paroxysomal Afibb presented to [facility] with palpitations and was found on EKG to be in Afibb with RVR. Pt was treated with IV Cardize and Digoxin in ED but was still Afibb on monitor and not rate controlled. Cardiology was consulted, Dr. Rivera. Pt was started on Metoprolol 50mg po q12 and Digoxin 0.125mg po daily. On 2nd day of hospital stay, pt was still noted to have episodes of afibb though HR was more rate controlled than admission. Pt was cleared for discharge by Dr. Rivera on Metoptrolol 50mg BID with close follow up with Dr. Rivera on Monday. As per, Dr. Rivera, pt does not require anticoagulation with ASA given low risk profile. Discharge Exam - Head Exam Head Exam: NORMAL INSPECTION - Eye Exam Eye Exam: Normal appearance - ENT Exam ENT Exam: Mucous Membranes Moist - Neck Exam Neck exam: Full Rom - Respiratory Exam Respiratory Exam: Clear to PA & Lateral. absent: Accessory Muscle Use, Rales, Rhonchi, Wheezes - Cardiovascular Exam Cardiovascular Exam: Irregular Rhythm, +S1, +S2. absent: Systolic Murmur - GI/Abdominal Exam GI & Abdominal Exam: Normal Bowel Sounds, Soft. absent: Tenderness - Extremities Exam Extremities exam: normal capillary refill, pedal pulses present - Psychiatric Exam Psychiatric exam: Normal Affect - Skin Skin Exam: Normal Color Discharge Plan - Discharge Medications Prescriptions: Metoprolol Tartrate [Lopressor] 50 mg PO Q12 #60 tab - Follow Up Plan Condition: IMPROVED Disposition: HOME/ ROUTINE Instructions: Atrial Fibrillation (DC) Additional Instructions: follow up appt with on monday10/22/18 Referrals: Chay Rivera MD [Staff Provider] - Dar Vergara MD [Staff Provider] -
[2018-10-19 11:59] VITALS: BP 100/74; PULSE 90; TEMP 97.7
--- NOTE | 2018-10-19 12:17 | CP.PCM.PN ---
Subjective - Date & Time of Evaluation Date of Evaluation: 10/19/18 Time of Evaluation: 10:15 - Subjective Subjective: The patient has been well-known to me for over 5 years. She has had bouts of atrial fibrillation in the past which were transient. Approximately year and a half back she was hospitalized with atrial fibrillation and promptly converted to sinus rhythm on receiving IV Cardizem. There is no history of hypertension or congestive cardiac failure. She came into the emergency room complaining of palpitations with no overt symptoms of congestive cardiac failure. She has been getting oral digoxin with some control of her heart rate go up on ambulating she has shown a tendency to have a heart rate in the range of 140-150 bpm which promptly returns to a heart rate of 90 bpm During this examination the patient was found to be sitting up comfortably in the bed with a heart rate of 80 bpm while on 50 mg of metoprolol twice a day. Her blood pressure was 100/70 mmHg lying down and standing up. There was no evidence of congestive cardiac failure. Echocardiogram showed preserved left ventricle systolic function with prolapse o f posterior mitral leaflet. There was mild to moderate mitral regurgitation. Inferior vena cava was dilated and did not collapse with inspiration suggesting evidence of pulmonary hypertension. Calculated pulmonary artery systolic pressure was only 34 mmHg. Her labs were noted. The patient may be allowed to return home taking 75 mg of metoprolol twice a day. I will arrange to see her at the beginning of the week 3 days from now. Objective - Vital Signs/Intake and Output Vital Signs (last 24 hours): Temp Pulse Resp BP Pulse Ox 97.7 F 90 18 100/74 98 10/19/18 11:58 10/19/18 11:58 10/19/18 11:58 10/19/18 11:58 10/19/18 11:58 - Medications Medications: Current Medications Acetaminophen (Tylenol 325mg Tab) 650 mg PO Q6 PRN PRN Reason: Pain, Mild (1-3) Aspirin (Aspirin Chewable) 81 mg PO DAILY [facility] Last Admin: 10/19/18 08:31 Dose: 81 mg Digoxin (Digoxin) 0.125 mg PO DAILY [facility] Last Admin: 10/19/18 08:31 Dose: 0.125 mg Enoxaparin Sodium (Lovenox) 40 mg SC DAILY [facility]; Protocol Last Admin: 10/19/18 08:32 Dose: 40 mg Metoprolol Tartrate (Lopressor) 50 mg PO Q12 [facility] Last Admin: 10/19/18 08:33 Dose: 50 mg Ondansetron HCl (Zofran Inj) 4 mg IVP Q6 PRN PRN Reason: Nausea/Vomiting - Labs Labs: 10/17/18 11:27 10/18/18 04:25 PT 10.7 Seconds (9.8-13.1) 10/17/18 11:27 INR 0.9 10/17/18 11:27 APTT 38.5 Seconds (25.6-37.1) H 10/17/18 11:27
[2018-10-20 12:43] VITALS: O2SAT 100
== END 2018-10-19 13:00 | disposition home or self-care (01) | DRG 310 ==
LOC: H.ER 10:45 → H.ERHOLD 13:50 → H.TEL 15:16
PROVIDERS: ADMIT Student in an Organized Health Care Education/Training Program; ATTEND Student in an Organized Health Care Education/Training Program
DX: I48.0 Paroxysmal atrial fibrillation (principal); I34.0 Nonrheumatic mitral (valve) insufficiency; G43.909 Migraine, unspecified, not intractable, without status migrainosus; K29.70 Gastritis, unspecified, without bleeding